=== PATIENT | male | born 1940 | race Caucasian/White ===

== ENCOUNTER 2016-11-22 08:10 | Inpatient (IN) | payer OTHER ==
[2016-11-01 11:24] VITALS: BMI 39.0
--- NOTE | 2016-11-01 12:04 | PAT Medication Instructions ---
Service Date November 01, 2016. Current Home Medication List Aspirin (Aspirin Ec), 81 MG PO QPM Atenolol (Tenormin), 100 MG PO QPM Cholecalciferol (Vitamin D3), 1 TAB PO QPM Ibuprofen Tab (Advil), 400 MG PO PRN Metformin Hcl (Glucophage), 500 MG PO BID Valsartan (Diovan), 320 MG PO QAM Medication Instructions For Your Scheduled Surgery - Check with surgeon for instructions: Ibuprofen Tab (Advil), 400 MG PO PRN - Hold the following medications 48 hours prior to surgery: Metformin Hcl (Glucophage), 500 MG PO BID - Hold the following medications the morning of surgery: Valsartan (Diovan), 320 MG PO QAM - Take the following medications as scheduled the night before surgery: Aspirin (Aspirin Ec), 81 MG PO QPM (okay to continue per surgeon) Atenolol (Tenormin), 100 MG PO QPM Cholecalciferol (Vitamin D3), 1 TAB PO QPM If you have any questions please call us at [phone] (Blanca Levi PA-C ) or [phone] or [phone]
[2016-11-01 13:22] LABS: BASO % 0.3 %; BASO ABS # 0.02 K/uL (0-0.2); COMPLETE YES; EOS % 1.7 %; HEMATOCRIT 41.1 % (42-52); IG% 0.3 %; LYMPH % 21.9 %; LYMPH ABS # 1.57 K/uL (1.2-3.4); MEAN CELL VOLUME 86.3 fL (80-100); MEAN CORPUSCULAR HEMOGLOBIN 29.2 pg (25-34); MEAN CORPUSCULAR HGB CONC 33.8 g/dl (32-36); MONO % 7.4 %; NEUT % 68.4 %; PLATELET COUNT 201 K/uL (130-400); RED BLOOD COUNT 4.76 M/uL (4.7-6.1); WHITE BLOOD COUNT 7.17 K/uL (4.8-10.8)
[2016-11-01 13:34] LABS: PARTIAL THROMBOPLASTIN RATIO 1.1; PROTHROMBIN TIME (PATIENT) 11.1 SECONDS (9.0-12.0)
[2016-11-01 14:06] LABS: ESTIMATED AVERAGE GLUCOSE 143 mg/dl; HA1C FLAG Normal (Normal)
[2016-11-01 14:37] LABS: BUN/CREATININE RATIO 17.8 (10-20); CALCIUM 8.8 mg/dl (8.5-10.1); CREATININE 1.2 mg/dl (0.60-1.40); POTASSIUM 4.2 mmol/L (3.5-5.1)
--- NOTE | 2016-11-01 16:32 | DIAGNOSTIC IMAGING REPORT ---
CHEST PREADMISSION(PA/LAT) CLINICAL HISTORY: PAT preoperative evaluation COMPARISON STUDY: No previous studies for comparison. FINDINGS: The bones soft tissues and hemidiaphragms are normal. The cardiomediastinal silhouette is normal. The lungs are clear. The pulmonary vasculature is normal. IMPRESSION: Negative chest. Electronically signed by: Bret Tidwell M.D. 11/01/2016 4:31 PM Dictated Date/Time: 11/01/2016 12:59 PM
--- NOTE | 2016-11-21 22:50 | HISTORY & PHYSICAL EXAMINATION ---
DATE OF ADMISSION: 11/22/2016 HISTORY OF PRESENT ILLNESS: The patient presents with severe endstage DJD. This is a 76-year-old white male, 5 feet 8 inches, 150 pounds with complaints of ongoing pain attributed to his left knee with severe end-stage tricompartmental degenerative joint disease with failure to respond to conservative management including physical therapy, anti-inflammatories, relative rest and activity modification who presents for a total knee arthroplasty. He has had previous physical therapy as well. ALLERGIES: None. FAMILY HISTORY: Otherwise unremarkable and noncontributory. SOCIAL HISTORY: The patient denies history of alcohol, smoking or recreational drug use. ALLERGIES: No known drug allergies are noted. PAST MEDICAL HISTORY: The patient does have a history of hypertension, hypercholesterolemia, chronic cough and diabetes. His past medical history is otherwise unremarkable. See history of present illness for pertinent positives. PHYSICAL EXAMINATION: GENERAL: This is a very pleasant male, alert and oriented x3. HEENT: Atraumatic, normocephalic and unremarkable. HEART: Regular rate, 68 beats per minute. LUNGS: Clear without rales, rhonchi or wheezes noted. ABDOMEN: Soft, nontender and nondistended. MUSCULOSKELETAL EXAMINATION: left Painful knee; with crepitation and varus alignment of the left knee. X-rays revealed evidence of medial joint line sclerosis, varus alignment, osteophytes, subchondral sclerosis and crepitation. The patient has failed attempts at conservative management including physical therapy, anti-inflammatories, relative rest, activity modification and presents for total knee arthroplasty. The patient's postoperative course will be controlled with pain management, DVT prophylaxis and antibiotics as necessary. CATHI
[2016-11-22] VITALS (8 sets, daily range): BP systolic 110–166; BP diastolic 59–98; PULSE 77–91; TEMP 36.5–36.9; O2SAT 93–97; BMI 39.0
[~2016-11-22] VITALS: Ht 172.7 cm; Wt 117.3 kg
[2016-11-22] MEDS: TRANEXAMIC ACID INJ 1,000 MG in SODIUM CHLORIDE 0.9% 100ML 100 ML IV SCH ×2 (06:30→09:42)
[~2016-11-22 08:10] MED LIST: ACETAMINOPHEN 500 MG TAB PO SCH; ASPI81TA28 PO; ATEN-175 PO; BUPIVACAINE 0.25% 30 ML VIAL ONE; BUPIVACAINE 0.5 % 5 MG/1 ML PF 10ML VIAL ONE; CEFAZOLIN 2000 MG/60 ML D5W 60 ML IV SCH; CHOL1000 PO; CeleBREX 200 MG CAP PO SCH; DEXAMETHASONE 4 MG TAB PO SCH; FAMOTIDINE 20 MG TAB PO SCH; GABAPENTIN 300 MG CAP PO SCH; GLC/500 PO; IBUP-103 PO; LACTATED RINGER'S 1000ML 1,000 ML IV SCH; LACTATED RINGER'S 1000ML 500 ML IV ONE; LACTATED RINGER'S 1000ML IV SCH; METOCLOPRAMIDE HCL 10 MG TAB PO SCH; ROPIVACAINE 5MG/ML 30 ML 150 MG, BUPIVACAINE/EPINEPHR 0.5% MPF 30 ML, KETOROLAC TROMETH... INFIL SCH; VALS320T PO
--- NOTE | 2016-11-22 08:21 | History & Physical Bridge Note ---
H&P Re-Evaluation Bridge Note: I have examined the patient, reviewed the History & Physical and in the interval since the performance of the History & Physical I have noted the following changes of clinical significance: No changes noted
[2016-11-22] MEDS ORDERED: FENTANYL CITRATE INJ 50 MCG/1 ML 2 ML VIAL ONE (08:56)
[2016-11-22] MEDS ORDERED: MIDAZOLAM HCL 1 MG/ML 2ML VIAL ONE (08:56)
[2016-11-22] MEDS ORDERED: PROPOFOL IV EMULSION 10 MG/ML 20 ML VIAL IV ONE (08:56)
[2016-11-22] MEDS ORDERED: ONDANSETRON INJ 2 MG/ML 2 ML VIAL ONE (08:56)
[2016-11-22] MEDS ORDERED: DEXAMETHASONE SOD INJ 4 MG/ML VIAL ONE (08:56)
[2016-11-22] MEDS ORDERED: LIDOCAINE HCL 2% 2 ML VIAL (20MG/ML) ONE (08:56)
[2016-11-22] MEDS ORDERED: GLYCOPYRROLATE INJ 0.2 MG/ML VIAL ONE (08:56)
[2016-11-22] MEDS ORDERED: ONDANSETRON INJ 2 MG/ML 2 ML VIAL IV PRN ×2 (09:00→12:00)
[2016-11-22] MEDS ORDERED: EpHEDrine SULFATE INJ 50 MG/ML AMP IV PRN (09:00)
[2016-11-22] MEDS ORDERED: ATROPINE SULFATE 0.1 MG/ML 5ML SYR IV PRN (09:00)
[2016-11-22] MEDS ORDERED: FENTANYL CITRATE INJ 50 MCG/1 ML 2 ML VIAL IV PRN (09:00)
[2016-11-22] MEDS ORDERED: ORTHO JOINT ANESTHETIC ONE (10:00)
[2016-11-22] MEDS ORDERED: POVIDONE-IODINE OP SOLN 30 ML BTL ONE (10:01)
[2016-11-22] MEDS ORDERED: BACITRACIN 50000 UNIT VIAL ONE (10:01)
--- NOTE | 2016-11-22 11:57 | [facility] Post Operative Brief Note ---
Immediate Operative Summary Operative Date Nov 22, 2016. Pre-Operative Diagnosis Left knee degenerative joint disease Post-Operative Diagnosis same Procedure(s) Performed Left total knee arthroplasty Surgeon Dr. Dueñas Capsule Machine Operator Surgeon(s) Jose De Jesus Mcgarry PA-C Estimated Blood Loss 5cc Findings severe djd lt knee Specimens a. left knee bone and tissue Complication(s) None Disposition Recovery Room / PACU
[2016-11-22] MEDS ORDERED: HYDROCODONE/ACETAMOPHEN 5/325MG TAB PO PRN (12:00)
[2016-11-22] MEDS ORDERED: DiphenhydrAMINE HCL 50 MG/ML VIAL IV PRN (12:00)
[2016-11-22] MEDS ORDERED: MAGNESIUM HYDROXIDE SUSP 30 ML UDC PO PRN (12:00)
[2016-11-22] MEDS ORDERED: METOCLOPRAMIDE HCL INJ 5 MG/ML 2 ML VIAL IV PRN (12:00)
[2016-11-22] MEDS ORDERED: BISACODYL 10 MG SUPP PR PRN (12:00)
[2016-11-22] MEDS ORDERED: OXYCODONE HCL IR 5 MG TAB (IMMEDIATE RELEASE) PO PRN (12:00)
[2016-11-22] MEDS ORDERED: ZOLPIDEM TARTRATE 5 MG TAB PO PRN (12:00)
[2016-11-22] MEDS ORDERED: SOD PHOSPHATE/SOD BIPHOSPHATE ENEMA 132 ML BTL PR PRN (12:00)
[2016-11-22] MEDS ORDERED: ALUMINUM/MAGNESIUM/SIMETH (MAALOX MAX) 30 ML UDC PO PRN (12:00)
[2016-11-22] MEDS ORDERED: METOPROLOL TARTRATE 1 MG/ML VIAL ONE (12:06)
--- NOTE | 2016-11-22 12:09 | OPERATIVE REPORT ---
DATE OF OPERATION: 11/22/2016 PREOPERATIVE DIAGNOSIS: Severe end-stage tricompartmental degenerative joint disease left knee. POSTOPERATIVE DIAGNOSIS: Severe end-stage tricompartmental degenerative joint disease with varus alignment, left knee. PROCEDURE: Left total knee arthroplasty utilizing [employer] Journey II patient matched total knee arthroplasty size 5 femur, 4 tibia, 10 poly, 35 oval patella. SURGEON: Dr. Dueñas. POWER TOOL REPAIRER: Jose De Jesus Person PA-C, who was necessary for prepping, draping, retraction, wound closure of deep fascia, subQ and skin and was necessary for the case. ESTIMATED BLOOD LOSS: 5 mL. TOURNIQUET TIME: 40 minutes. COMPLICATIONS: None. HISTORY OF PRESENT ILLNESS: The patient is a 76-year-old white male being seen and evaluated with complaints of ongoing severe end-stage tricompartmental degenerative joint disease of his left knee. He has been unresponsive to conservative therapy including anti-inflammatories, injections, relative rest, activity modification and presents for total knee arthroplasty. Risks, complications have been thoroughly discussed and the patient agrees to proceed forward with total knee arthroplasty. OPERATION AND FINDINGS: PROCEDURE: The patient was properly prepped and draped in supine position for total knee arthroplasty after identifying the appropriate surgical site. An anterior midline incision was made through the subcutaneous tissues down to the region of the extensor mechanism. A medial parapatellar incision was subsequently made. Meticulous hemostasis was obtained and performed at all times. The patella having been subluxed lateralward, medial and lateral meniscal remnants were excised. The patellar cut was then initially made and was sized to the appropriate size. After subluxing the tibia forward the appropriate meniscal fragments having been removed the distal femur was then cut first utilizing a [employer] block. The distal femoral cuts and chamfer cuts were all made under direct visualization and the proximal tibial osteotomy cut was also made utilizing [employer] blocks and checked with an extramedullary guide. The appropriate trial components on the femur and tibia were placed. Appropriate trial spacers were used to check flexion and extension gaps. With flexion and extension gaps being equal, the components were then subsequently after thorough irrigation and debridement lavage components were then subsequently cemented in the following order: femur, tibia and patella. Exparel was used for intraoperative anesthesia, the medial parapatellar incision was closed utilizing #1 Vicryl, subQ was closed with 2-0 Vicryl, skin was closed with skin clips. A sterile compression dressing was placed. The patient was taken to recovery room in stable condition. Due to the complex nature of the procedure, the entire surgery was performed with the operational assistance of Jose De Jesus Person PA-C. The rehab care assistant, under direct supervision, was involved in the actual performance of all aspects of the surgical procedure including hemostasis, tissue retraction and incision, instrument management, patient positioning, and wound closure. I attest to the content of the Intraoperative Record and any orders documented therein. Any exception s are noted below.
[2016-11-22] MEDS ORDERED: MoRPHine SULFATE 2 MG/ML CARP IV PRN ×2 (12:45→13:15)
--- NOTE | 2016-11-22 13:01 | Anesthesiology Progress Note ---
Anesthesia Post Op Note Date & Time Nov 22, 2016 at 13:01 Vital Signs Pain Intensity: 0 Vital Signs Past 12 Hours Date Time Temp Pulse Resp B/P (MAP) Pulse Ox O2 Delivery O2 Flow Rate FiO2 11/22/16 12:50 89 16 111/65 93 Nasal Cannula 2 11/22/16 12:40 84 16 156/72 100 Mask 10 11/22/16 12:35 37.1 89 16 84/43 98 Mask 10 11/22/16 08:48 36.7 77 18 166/98 96 Room Air Notes Mental Status: alert / awake / arousable, participated in evaluation Pt Amnestic to Procedure: Yes Nausea / Vomiting: adequately controlled Pain: adequately controlled Airway Patency, RR, SpO2: stable & adequate BP & HR: stable & adequate Hydration State: stable & adequate Neuraxial Anesthesia: was administered, sensory block is resolving Anesthetic Complications: no major complications apparent
--- NOTE | 2016-11-22 13:02 | DIAGNOSTIC IMAGING REPORT ---
LEFT KNEE 1 OR 2 VIEWS ROUTINE CLINICAL HISTORY: AP/LATERAL IN PACU LEFT KNEE COMPARISON: None. DISCUSSION: Evidence for a total left knee arthroplasty. Good contact between prosthetic and underlying bone. Surgical drains are in position. Expected soft tissue postoperative change. IMPRESSION: Anatomic alignment status post left knee arthroplasty. Electronically signed by: Bret Tidwell M.D. 11/22/2016 1:01 PM Dictated Date/Time: 11/22/2016 1:00 PM
[2016-11-22] MEDS ORDERED: MoRPHine SULFATE 10 MG/ML CARP/VIAL IV PRN (13:15)
[2016-11-22] MEDS ORDERED: MoRPHine SULFATE 4 MG/ML 1 ML CARP\\VIAL IV PRN (13:15)
[2016-11-22] MEDS: SODIUM CHLORIDE 0.9% 1000ML 1,000 ML IV SCH ×2 (13:31→22:17)
[2016-11-22] MEDS ORDERED: GLUCAGON FOR INJ 1 MG VIAL SQ PRN (13:45)
[2016-11-22] MEDS ORDERED: GLUCOSE 40% GEL 15 GM TUBE PO PRN (13:45)
[2016-11-22] MEDS ORDERED: DEXTROSE 50% 50 ML SYR IV PRN (13:45)
[2016-11-22] MEDS ORDERED: GLUCOSE 10 TABS/TUBE PO PRN (13:45)
--- NOTE | 2016-11-22 14:10 | Medical Consult ---
Consultation Date of Consultation: Nov 22, 2016. Attending Physician: Theo Dueñas D.O. Reason for Consultation: Post op med evaluation History of Present Illness 76 y/o M DJD, HTN, HPL, DM 2. Pt is S/P L TKA. Pt is recovering well in the post-op period. Pain is controlled. Denies CP, SOB, N/V, light head. Past Medical/Surgical History 1) HTN 2) HPL - untreated 3) DM 2 4) DJD Social History Smoking Status: Former Smoker Allergies Coded Allergies: No Known Allergies (Unverified , 11/22/16) Current Inpatient Medications Current Inpatient Medications Medications (Trade) Dose Ordered Sig/Christian Route Start Time Stop Time Status Last Admin Dose Admin Lactated Ringer's 1,000 ml @ 60 mls/hr [id number] IV 11/22/16 06:00 11/22/16 22:39 Acetaminophen (Tylenol Tab) 1,000 mg PREOP PO 11/22/16 06:00 11/22/16 18:00 11/22/16 09:29 1,000 MG Celecoxib (CeleBREX CAP) 200 mg PREOP PO 11/22/16 06:00 11/22/16 18:00 11/22/16 09:30 200 MG Dexamethasone (Decadron Tab) 8 mg PREOP PO 11/22/16 06:00 11/22/16 18:00 11/22/16 09:29 8 MG Famotidine (Pepcid Tab) 20 mg PREOP PO 11/22/16 06:00 11/22/16 18:00 11/22/16 09:29 20 MG Gabapentin (Neurontin Cap) 300 mg PREOP PO 11/22/16 06:00 11/22/16 18:00 11/22/16 09:29 300 MG Metoclopramide HCl (Reglan Tab) 10 mg PREOP PO 11/22/16 06:00 11/22/16 18:00 11/22/16 09:28 10 MG Tranexamic Acid 1000 mg/Sodium Chloride 110 ml @ 660 mls/hr TODAY@06,0630 IV 11/22/16 06:00 11/22/16 18:00 11/22/16 09:42 660 MLS/HR Cefazolin Sodium 60 ml @ 100 mls/hr PREOP IV 11/22/16 06:00 11/22/16 18:00 11/22/16 10:45 100 MLS/HR Ropivacaine 150 mg/Bupivacaine HCl/Epinephrine Bitart 30 ml/ Ketorolac Tromethamine 30 mg/Dexamethasone Sodium Phosphate 4 mg/Ketamine HCl 10 mg/Clonidine 100 mcg/Sodium Chloride 30 ml/ Empty Bag 93.2 ml @ 0 mls/hr TODAY@06 INFIL 11/22/16 06:00 11/22/16 16:00 11/22/16 11:21 93.2 MLS/HR Lactated Ringer's 1,000 ml @ 15 mls/hr Q24H IV 11/22/16 06:00 11/23/16 05:59 11/22/16 09:30 15 MLS/HR Sodium Chloride 1,000 ml @ 100 mls/hr Q10H IV 11/22/16 11:57 11/23/16 11:56 11/22/16 13:31 100 MLS/HR Cefazolin Sodium 2000 mg/Dextrose 60 ml @ 100 mls/hr Q8H IV 11/22/16 18:00 11/23/16 02:35 Oxycodone HCl (Roxicodone Immediate Rel Tab) 1 TABLET FOR PAIN RATING... Q4H PRN PO 11/22/16 12:00 12/06/16 11:59 Oxycodone HCl (Oxycontin Tab) 10 mg Q12 PO 11/22/16 21:00 12/06/16 20:59 Magnesium Hydroxide (Milk Of Magnesia Susp) 30 ml Q6H PRN PO 11/22/16 12:00 12/22/16 11:59 Bisacodyl (Dulcolax Supp) 10 mg DAILY PRN RI 11/22/16 12:00 12/22/16 11:59 Sodium Biphosphate/ Sodium Phosphate (Fleet Enema) 132 ml DAILY PRN RI 11/22/16 12:00 12/22/16 11:59 Senna (Senokot Tab) 17.2 mg HS PO 11/22/16 21:00 12/22/16 20:59 Docusate Sodium (coLACE CAP) 100 mg BID PO 11/22/16 21:00 12/22/16 20:59 Diphenhydramine HCl (Benadryl Cap) 25 mg Q8H PRN PO 11/22/16 12:00 12/22/16 11:59 Diphenhydramine HCl (Benadryl Inj) 25 mg Q8H PRN IV 11/22/16 12:00 12/22/16 11:59 Al Hydrox/Mg Hydrox/Simethicone (Maalox Max Susp) 15 ml Q4H PRN PO 11/22/16 12:00 12/22/16 11:59 Zolpidem Tartrate (Ambien Tab) 5 mg HSZ PRN PO 11/22/16 12:00 12/22/16 11:59 Multivitamins (Multivitamin Tab) 1 tab QAM PO 11/23/16 09:00 12/23/16 08:59 Ondansetron HCl (Zofran Inj) 4 mg Q6H PRN IV 11/22/16 12:00 12/22/16 11:59 Metoclopramide HCl (Reglan Inj) 10 mg Q6H PRN IV 11/22/16 12:00 12/22/16 11:59 Ferrous Gluconate (Ferrous Gluconate Tab) 324 mg TIDM PO 11/22/16 17:45 12/22/16 17:44 Pantoprazole Sodium (Protonix Tab) 40 mg QAM PO 11/23/16 09:00 12/23/16 08:59 Tranexamic Acid 1000 mg/Sodium Chloride 110 ml @ 660 mls/hr Q6H IV 11/22/16 18:30 11/22/16 18:39 Aspirin (Ecotrin Tab) 81 mg BID PO 11/22/16 21:00 12/22/16 20:59 Atenolol (Tenormin Tab) 100 mg QPM PO 11/23/16 21:00 12/23/16 20:59 Cholecalciferol (Vitamin D Tab) 1,000 inter.unit QPM PO 11/22/16 21:00 12/22/16 20:59 Valsartan (Diovan Tab) 320 mg QAM PO 11/23/16 09:00 12/23/16 08:59 Insulin Aspart (novoLOG ASPART) SLIDING SCALE G... ACHS SC 11/22/16 16:00 12/22/16 15:59 Morphine Sulfate (MoRPHine SULFATE INJ) 2 mg Q4HWA PRN IV 11/22/16 13:15 12/06/16 13:14 Morphine Sulfate (MoRPHine SULFATE INJ) 4 mg Q4HWA PRN IV 11/22/16 13:15 12/06/16 13:14 Morphine Sulfate (MoRPHine SULFATE INJ) 6 mg Q4HWA PRN IV 11/22/16 13:15 12/06/16 13:14 Glucose (Glucose 40% Gel) 15-30 GRAMS 15 GRAMS... UD PRN PO 11/22/16 13:45 12/22/16 13:44 Glucose (Glucose Chew Tab) 4-8 Tablets 4 Tabl... UD PRN PO 11/22/16 13:45 12/22/16 13:44 Dextrose (Dextrose 50% 50ML Syringe) 25-50ML OF 50% DW IV FOR... UD PRN IV 11/22/16 13:45 12/22/16 13:44 Glucagon (Glucagon Inj) 1 mg UD PRN SQ 11/22/16 13:45 12/22/16 13:44 Review of Systems Constitutional: No fever, No chills, No sweats Eyes: No worsening of vision, No eye pain ENT: No hearing loss, No unusual epistaxis, No nasal symptoms Respiratory: No cough, No sputum, No wheezing Cardiovascular: No chest pain, No orthopnea, No PND Abdomen: No pain, No nausea, No vomiting Musculoskeletal: + joint pain (pain at surgical site), + muscle pain Genitourinary - Male: No hematuria, No dysuria, No urinary frequency, No urinary urgency Neurologic: No memory loss, No paralysis, No weakness Psychiatric: No depression symptoms, No anhedonism Endocrine: No fatigue, No excessive thirst Hematologic / Lymphatic: No abnormal bleeding/bruising Integumentary: No rash Allergic / Immunologic: No environmental allergies Physical Exam Date Time Temp Pulse Resp B/P (MAP) Pulse Ox O2 Delivery O2 Flow Rate FiO2 11/22/16 13:40 36.9 88 19 121/69 (86) 96 Nasal Cannula 2.0 11/22/16 13:15 36.6 86 18 110/87 (95) 94 Nasal Cannula 2.0 11/22/16 13:00 36.6 88 16 103/61 93 Nasal Cannula 2 11/22/16 12:50 89 16 111/65 93 Nasal Cannula 2 11/22/16 12:40 84 16 156/72 100 Mask 10 11/22/16 12:35 37.1 89 16 84/43 98 Mask 10 11/22/16 08:48 36.7 77 18 166/98 96 Room Air General Appearance: WD/WN, no apparent distress Head: normocephalic, atraumatic Eyes: normal inspection, PERRL, EOMI ENT: normal ENT inspection, hearing grossly normal, pharynx normal Neck: supple, no JVD Respiratory/Chest: chest non-tender, lungs clear, normal breath sounds Cardiovascular: regular rate, rhythm, no gallop, no JVD, no murmur, normal peripheral pulses Abdomen/GI: normal bowel sounds, non tender, soft Back: normal inspection, no CVA tenderness, no muscle spasm, normal range of motion Extremities/Musculoskelatal: + pertinent finding (A drain is placed in the L knee - there is B/L edema L > R) Neurologic/Psych: chaplain II-XII nml as tested, no motor/sensory deficits, alert, normal mood/affect, normal reflexes, oriented x 3 Skin: normal color, warm/dry, no rash Laboratory Results Last 24 Hours Test 11/22/16 08:34 11/22/16 12:51 Bedside Glucose 193 mg/dl 205 mg/dl Assessment & Plan 76 y/o M DJD, HTN, HPL, DM 2. Pt is S/P L TKA. Pt is recovering well in the post-op period. Pain is controlled. Denies CP, SOB, N/V, light head. 1) Post - op - no noted complications - pain controlled - tolerating PO - to start PT - DVT prophylaxis at earliest allowable time 2) DM - agree with napoleon-op sliding scale 3) HTN - VB elder today if BP tolerated - reintroduce Valsartan AM with parameters and after BMP reviewed Total time for this consult including review of labs, meds, EKG, ortho records - 30 min
[2016-11-22] MEDS: INSULIN ASPART 100 UNITS/ML 3 ML PEN SC SCH ×3 (14:59→22:14)
[2016-11-22] MEDS ORDERED: LANTUS PER UNIT CHARGE SC SCH (18:15)
[2016-11-22] MEDS ORDERED: TRANEXAMIC ACID INJ 1,000 MG in SODIUM CHLORIDE 0.9% 100ML 100 ML IV SCH (18:30)
[2016-11-22] MEDS: CEFAZOLIN IV 2,000 MG in DEXTROSE 5% 50ML 50 ML IV SCH (18:33)
[2016-11-22] MEDS: FERROUS GLUCONATE 324 MG TAB PO SCH (18:34)
[2016-11-22] MEDS: SENNA 8.6 MG TAB PO SCH (21:00)
[2016-11-22] MEDS: DOCUSATE SODIUM 100 MG CAP PO SCH (21:00)
[2016-11-22] MEDS: OXYCODONE HCL 10 MG TABCR (OXYCONTIN) PO SCH ×2 (21:00→22:21)
[2016-11-22] MEDS: ASPIRIN 81 MG ECTAB PO SCH (22:07)
[2016-11-22] MEDS: CHOLECALCIFEROL 1000 INTER.UNIT TAB PO SCH (22:08)
[2016-11-23] VITALS (8 sets, daily range): BP systolic 110–173; BP diastolic 62–90; PULSE 75–80; TEMP 36.4–36.8; O2SAT 95–98; Ht 172.7 cm; Wt 117.3 kg
[2016-11-23] MEDS: CEFAZOLIN IV 2,000 MG in DEXTROSE 5% 50ML 50 ML IV SCH (02:18)
[2016-11-23 05:48] LABS: HEMATOCRIT 35.8 % (42-52); MEAN CORPUSCULAR HEMOGLOBIN 27.9 pg (25-34); MEAN CORPUSCULAR HGB CONC 33.2 g/dl (32-36); MEAN PLATELET VOLUME 9.8 fL (7.4-10.4); PLATELET COUNT 170 K/uL (130-400); RED BLOOD COUNT 4.26 M/uL (4.7-6.1); WHITE BLOOD COUNT 10.62 K/uL (4.8-10.8)
[2016-11-23 06:20] LABS: BUN/CREATININE RATIO 21.1 (10-20); CALCIUM 8.1 mg/dl (8.5-10.1); CREATININE 1.3 mg/dl (0.60-1.40); POTASSIUM 4.4 mmol/L (3.5-5.1)
--- NOTE | 2016-11-23 07:53 | Hospitalist Progress Note ---
Hospitalist Progress Note Date of Service Nov 23, 2016. Subjective Pt evaluation today including: conversation w/ patient, conversation w/ family , physical exam, chart review, lab review Pain: None PO Intake: Good Voiding: no voiding problems The patient was seen and examined this morning. Pt reports doing well. He just worked with PT/OT and did a long lap around the [place]. His pain actually improved as he was walking, and reports his knee isn't as stiff now. He is eating without difficulty, and reports passing gas although hasn't had a BM yet. His glucose has been slightly elevated here, in the high 200s and low 300s , pt reports it's normally around 150 at home. Constitutional: No fever, No chills, No sweats, No fatigue Eyes: No redness, No diplopia ENT: No sore throat, No trouble swallowing Respiratory: No cough, No shortness of breath Cardiovascular: No chest pain, No palpitations Abdomen: No pain, No nausea, No vomiting, No diarrhea, No constipation Musculoskeletal: + swelling (bilateral lower extremities), No joint pain, No muscle pain Neurologic: No weakness, No numbness/tingling Endo: No fatigue Skin: No rash, No itch Objective Vital Signs Date Time Temp Pulse Resp B/P (MAP) Pulse Ox O2 Delivery O2 Flow Rate FiO2 11/23/16 03:13 78 136/78 (97) 11/23/16 02:55 36.4 78 18 162/76 (104) 95 Room Air 11/23/16 00:24 Room Air 11/22/16 23:00 36.5 86 18 140/93 (109) 93 Room Air 11/22/16 20:30 36.8 80 20 130/78 (95) 96 Room Air 11/22/16 16:27 36.9 85 20 131/72 (91) 96 Nasal Cannula 2.0 11/22/16 16:00 Nasal Cannula 2.0 11/22/16 15:22 36.9 79 18 122/68 (86) 94 Nasal Cannula 2.0 11/22/16 14:15 91 113/59 (77) 97 Nasal Cannula 2.0 11/22/16 13:40 36.9 88 19 121/69 (86) 96 Nasal Cannula 2.0 11/22/16 13:30 Nasal Cannula 2.0 11/22/16 13:30 Nasal Cannula 2.0 11/22/16 13:15 36.6 86 18 110/87 (95) 94 Nasal Cannula 2.0 11/22/16 13:00 36.6 88 16 103/61 93 Nasal Cannula 2 11/22/16 12:50 89 16 111/65 93 Nasal Cannula 2 11/22/16 12:40 84 16 156/72 100 Mask 10 11/22/16 12:35 37.1 89 16 84/43 98 Mask 10 11/22/16 08:48 36.7 77 18 166/98 96 Room Air Physical Exam General Appearance: WD/WN, no apparent distress, + obese Eyes: PERRL, EOMI ENT: hearing grossly normal, pharynx normal Neck: supple, no JVD Respiratory/Chest: lungs clear, no respiratory distress, no accessory muscle use Cardiovascular: regular rate, rhythm, no JVD, no murmur Abdomen: normal bowel sounds, non tender, soft Extremities: non-tender, no calf tenderness, + pedal edema (1+ pitting ), + pertinent finding (L knee with SUSAN wrap, ice pack in place, hemovac draining) Neurologic/Psychiatric: alert, normal mood/affect, oriented x 3 Laboratory Results Last 24 Hours Test 11/22/16 08:34 11/22/16 12:51 11/22/16 17:10 11/22/16 21:37 Bedside Glucose 193 mg/dl 205 mg/dl 332 mg/dl 260 mg/dl Test 11/23/16 05:33 White Blood Count 10.62 K/uL Red Blood Count 4.26 M/uL Hemoglobin 11.9 g/dL Hematocrit 35.8 % Mean Corpuscular Volume 84.0 fL Mean Corpuscular Hemoglobin 27.9 pg Mean Corpuscular Hemoglobin Concent 33.2 g/dl RDW Standard Deviation 42.7 fL RDW Coefficient of Variation 14.0 % Platelet Count 170 K/uL Mean Platelet Volume 9.8 fL Sodium Level 137 mmol/L Potassium Level 4.4 mmol/L Chloride Level 102 mmol/L Carbon Dioxide Level 26 mmol/L Anion Gap 9.0 mmol/L Blood Urea Nitrogen 27 mg/dl Creatinine 1.30 mg/dl Est Creatinine Clear Calc Drug Dose 59.2 ml/min Estimated GFR () 61.0 Estimated GFR (Non- 52.6 BUN/Creatinine Ratio 21.1 Random Glucose 188 mg/dl Calcium Level 8.1 mg/dl Assessment and Plan 76 y/o M with Degenerative joint disease, HTN, HPL, DM 2 who is now S/P Left TKA by Dr. Dueñas. S/p L TKA - Analgesia with oxycodone 5-10 mg, morphine IV, will continue bowel regimen. - DVT ppx with ASA 81 mg BID - PT/OT per primary team, plans for home health rehab after d/c DM - ISS with accuchecks - Restart metformin 500 mg BID with increased glucose HTN - - Restarted atenolol 100 mg QPM last evening, Valsartan 320 mg Qam scheduled today DVT ppx: ASA 81 mg BID, teds, scd on unaffected leg CODE STATUS: FULL CODE Disposition: From home, likely discharge tomorrow, home health pt/ot
--- NOTE | 2016-11-23 08:12 | Anesthesiology Progress Note ---
Anesthesia Post Op Note Date & Time Nov 23, 2016 at 08:12 Vital Signs Pain Intensity: 8.0 Vital Signs Past 12 Hours Date Time Temp Pulse Resp B/P (MAP) Pulse Ox O2 Delivery O2 Flow Rate FiO2 11/23/16 07:53 36.5 80 18 128/90 (103) 98 Room Air 11/23/16 03:13 78 136/78 (97) 11/23/16 02:55 36.4 78 18 162/76 (104) 95 Room Air 11/23/16 00:24 Room Air 11/22/16 23:00 36.5 86 18 140/93 (109) 93 Room Air 11/22/16 20:30 36.8 80 20 130/78 (95) 96 Room Air Notes Mental Status: alert / awake / arousable, participated in evaluation Pt Amnestic to Procedure: Yes Nausea / Vomiting: adequately controlled Pain: adequately controlled Airway Patency, RR, SpO2: stable & adequate BP & HR: stable & adequate Hydration State: stable & adequate Neuraxial Anesthesia: was administered, sensory block resolved Anesthetic Complications: no major complications apparent
[2016-11-23] MEDS: SODIUM CHLORIDE 0.9% 1000ML 1,000 ML IV SCH (08:26)
[2016-11-23] MEDS: DOCUSATE SODIUM 100 MG CAP PO SCH ×2 (08:30→21:00)
[2016-11-23] MEDS: FERROUS GLUCONATE 324 MG TAB PO SCH ×3 (08:30→17:53)
[2016-11-23] MEDS: ASPIRIN 81 MG ECTAB PO SCH ×2 (08:31→21:14)
[2016-11-23] MEDS: PANTOprazole SOD 40 MG TAB PO SCH (08:31)
[2016-11-23] MEDS: MULTIVITAMIN TAB PO SCH (08:31)
[2016-11-23] MEDS: VALSARTAN 80 MG TAB PO SCH (08:31)
[2016-11-23] MEDS: INSULIN ASPART 100 UNITS/ML 3 ML PEN SC SCH ×4 (08:38→21:22)
--- NOTE | 2016-11-23 08:50 | Orthopedic Progress Note ---
Orthopedic Progress Note Date of Service Nov 23, 2016. Subjective Post OP Day: 1 Reports: feeling well, Denies: complaints, chest pain, SOB, nausea / vomiting, light headedness, calf pain Additional Notes: Pt sitting up in chair eating breakfast. No complaints this AM. Pain controlled currently. Objective calves soft nontender, N/V intact, dressing C/D/I, A&O x3, toes mobile, hemovac drainage (75ml latest shift) Date Time Temp Pulse Resp B/P (MAP) Pulse Ox O2 Delivery O2 Flow Rate FiO2 11/23/16 08:23 98 Room Air 11/23/16 07:53 36.5 80 18 128/90 (103) 98 Room Air 11/23/16 03:13 78 136/78 (97) 11/23/16 02:55 36.4 78 18 162/76 (104) 95 Room Air 11/23/16 00:24 Room Air 11/22/16 23:00 36.5 86 18 140/93 (109) 93 Room Air 11/22/16 20:30 36.8 80 20 130/78 (95) 96 Room Air 11/22/16 16:27 36.9 85 20 131/72 (91) 96 Nasal Cannula 2.0 11/22/16 16:00 Nasal Cannula 2.0 11/22/16 15:22 36.9 79 18 122/68 (86) 94 Nasal Cannula 2.0 11/22/16 14:15 91 113/59 (77) 97 Nasal Cannula 2.0 11/22/16 13:40 36.9 88 19 121/69 (86) 96 Nasal Cannula 2.0 11/22/16 13:30 Nasal Cannula 2.0 11/22/16 13:30 Nasal Cannula 2.0 11/22/16 13:15 36.6 86 18 110/87 (95) 94 Nasal Cannula 2.0 11/22/16 13:00 36.6 88 16 103/61 93 Nasal Cannula 2 11/22/16 12:50 89 16 111/65 93 Nasal Cannula 2 11/22/16 12:40 84 16 156/72 100 Mask 10 11/22/16 12:35 37.1 89 16 84/43 98 Mask 10 11/22/16 08:48 36.7 77 18 166/98 96 Room Air Laboratory Results 24 Hours: Test 11/23/16 05:33 Hematocrit 35.8 % Hemoglobin 11.9 g/dL Assessment & Plan Assessment: POD 1 s/p Left TKA HTN DM 2 Hypercholesterolemia Plan: PT/OT Planning for HH services upon DC Medical Management per [facility] Hospitalist Service Inhouse Planning Pain Management: Oxycontin, Morphine, Oxy IR DVT Prophylaxis: TEDs, SCDs, ASA Discharge Planning Discharge Planning: home with home health Pain Management: Oxycontin, PO Tylenol, Oxy IR DVT Prophylaxis: TEDs, ASA Therapy: Physical Therapy
[2016-11-23] MEDS: OXYCODONE HCL 10 MG TABCR (OXYCONTIN) PO SCH ×2 (08:51→21:15)
--- NOTE | 2016-11-23 08:54 | Discharge Instructions ---
Discharge Instructions Date of Service Nov 23, 2016. Admission Reason for Admission: Left Knee Degenerative Joint Disease Discharge Discharge Diagnosis / Problem: Djd Left Knee Discharge Goals Goal(s): Decrease discomfort, Improve function Activity Recommendations Activity Limitations: per Instructions/Follow-up section Weightbearing Status: Left weightbearing (as tolerated) . Instructions / Follow-Up Instructions / Follow-Up ACTIVITY RECOMMENDATIONS: SELF CARE INSTRUCTIONS AFTER TOTAL KNEE REPLACEMENT A. You may need to continue a physical therapy program after discharge from the hospital. There are several options available to you. Your doctor will assist you in selecting the best one for you. 1. An out-patient facility 2 to 3 times a week for therapy or home therapy. 2. Continue working on all exercises taught to you in the hospital. Your goals should be to increase bending of your knee to 90 degrees and beyond and to fully straighten your knee. B. You may progress at your own pace from walking with a walker or crutches to a cane; then to no assistive devices. C. Make walking a part of your daily routine. Be up as much as comfortable with rest periods throughout the day. Rest with leg elevation is very important. Use the ice wrap frequently for the first 3-4 weeks. D. There are no restrictions on activities. You may ride in a car, shop, participate in hotel services supervisor and all social activities. E. Wear the long elastic stockings (SHANTEL hose) 20 hours a day for 2 weeks after surgery. They can be removed several times a day for laundering and for a bath. F. You may shower, no tub baths until cleared by your doctor. SPECIAL CARE INSTRUCTIONS: VERY IMPORTANT TO READ AND REVIEW A. There are a few signs you need to watch for after you are home. Call [facility] if you notice any of the followin. Increased severe knee pain. Some pain is expected especially when you exercise. 2. Increased swelling in your leg or knee; pain or swelling of the calf muscle in either lower leg. 3. Any fluid drainage from the incision. 4. Shortness of breath or chest pain. B. Please call [facility] at if you have any concerns or questions about your operation or recovery. The doctor or his nurse will return your call promptly. C. You must take antibiotics before dental work, bladder, bowel or other surgery. Your doctor will provide you with a permanent care to carry describing this precaution. IMPORTANT: * REMEMBER TO TAKE ASPIRIN, 81 MG, TWICE DAILY FOR 4 WEEKS UNLESS OTHERWISE DIRECTED. THIS IS YOUR BLOOD THINNER. * HIGH RISK PATIENTS MAY BE PRESCRIBED A STRONGER BLOOD THINNER. THIS WILL BE PROVIDED AT DISCHARGE. * CALL IF INCREASED PAIN, REDNESS, DRAINAGE OR FEVER GREATER THAT 101. * WEAR SHANTEL HOSE 20 HOURS PER DAY FOR 2 WEEKS. * Silverlon- This is a large adhesive bandage that contains silver ions. This helps your incision heal by fighting off bacteria and protecting it from the outside environment. You are permitted to shower with this dressing. This will remain on your incision for 7 days and then should be removed. Some visible blood or drainage through the dressing window is normal. If there is significant drainage or leaking noted before the 7 days notify your doctor's office immediately. Once removed, keep incision clean and dry. If there is any drainage or redness noted, please call your surgeon. . FOLLOW UP VISIT: If appointment is not already scheduled: Please call [facility] to make a follow-up appointment for 2 weeks after your surgery at . Current Hospital Diet Patient's current hospital diet: Diabetes Type 2 Diet Discharge Diet Recommended Diet: Diabetes Type 2 Diet Procedures Procedures Performed: Left total knee arthroplasty Pending Studies Studies pending at discharge: no Laboratory Results Hemoglobin A1c Test 11/01/16 12:25 Range/Units Estimated Average Glucose 143 mg/dl Hemoglobin A1c 6.6 H 4.5-5.6 % Medical Emergencies . Who to Call and When: Medical Emergencies: If at any time you feel your situation is an emergency, please call 911 immediately. . Non-Emergent Contact Non-Emergency issues call your: Surgeon Call Non-Emergent contact if: temperature is above 101.5, your pain is not controlled, your pain is worsening, wound has increased drainage, wound has increased redness . "Provider Documentation" section prepared by Jose De Jesus Person. . VTE Core Measure Inpt VTE Proph given/why not?: Other Anticoagulation, T.E.D. Stockings, SCD's [place] Drug Monitoring Program Search Results: patient reviewed within database, no issues identified
[2016-11-23] MEDS: METFORMIN HCL 500 MG TAB PO SCH ×2 (12:49→21:15)
[2016-11-23] MEDS: ACETAMINOPHEN 500 MG TAB PO SCH ×2 (13:49→21:19)
[2016-11-23] MEDS: SENNA 8.6 MG TAB PO SCH (21:00)
[2016-11-23] MEDS: CHOLECALCIFEROL 1000 INTER.UNIT TAB PO SCH (21:17)
[2016-11-24] MEDS: ACETAMINOPHEN 500 MG TAB PO SCH (05:34)
--- NOTE | 2016-11-24 07:24 | Orthopedic Progress Note ---
Orthopedic Progress Note Date of Service Nov 24, 2016. Subjective Post OP Day: 2 Reports: feeling well Objective calves soft nontender, N/V intact, dressing C/D/I, toes mobile Date Time Temp Pulse Resp B/P (MAP) Pulse Ox O2 Delivery O2 Flow Rate FiO2 11/24/16 00:10 Room Air 11/23/16 22:45 36.6 78 16 166/62 (96) 96 Room Air 11/23/16 16:19 36.8 75 17 147/66 (93) 95 Room Air 11/23/16 15:45 Room Air 11/23/16 12:13 36.6 77 16 110/68 (82) 96 Room Air 11/23/16 10:11 80 97 11/23/16 08:25 Room Air 11/23/16 08:23 98 Room Air 11/23/16 07:53 36.5 80 18 128/90 (103) 98 Room Air Assessment & Plan Assessment: POD 2 s/p Left TKA HTN DM 2 Hypercholesterolemia Plan: PT/OT Planning for HH services upon DC Medical Management per [facility] Hospitalist Service Inhouse Planning Pain Management: Oxycontin, Morphine, Oxy IR DVT Prophylaxis: TEDs, SCDs, ASA Discharge Planning Discharge Planning: home with home health Pain Management: Oxycontin, PO Tylenol, Oxy IR DVT Prophylaxis: TEDs, ASA Therapy: Physical Therapy
[2016-11-24] MEDS ORDERED: OXYSR10 PO (07:27)
[2016-11-24] MEDS ORDERED: RXC5 PO (07:27)
[2016-11-24] MEDS ORDERED: ASPEC81 PO (07:27)
[2016-11-24] MEDS ORDERED: ACET-24 PO (07:27)
[2016-11-24 07:28] VITALS: BP 149/69; PULSE 73; TEMP 36.5; O2SAT 95
[2016-11-24] MEDS: FERROUS GLUCONATE 324 MG TAB PO SCH (08:15)
[2016-11-24] MEDS: INSULIN ASPART 100 UNITS/ML 3 ML PEN SC SCH (08:28)
[2016-11-24] MEDS: DOCUSATE SODIUM 100 MG CAP PO SCH (08:30)
[2016-11-24] MEDS ORDERED: METFORMIN HCL 500 MG TAB PO SCH (08:30)
[2016-11-24] MEDS: VALSARTAN 80 MG TAB PO SCH (08:30)
[2016-11-24] MEDS: PANTOprazole SOD 40 MG TAB PO SCH (08:31)
[2016-11-24] MEDS: ASPIRIN 81 MG ECTAB PO SCH (08:31)
[2016-11-24] MEDS: MULTIVITAMIN TAB PO SCH (08:31)
[2016-11-24] MEDS: OXYCODONE HCL 10 MG TABCR (OXYCONTIN) PO SCH (08:56)
[2016-11-24 10:55] VITALS: BP 149/69; PULSE 73; TEMP 36.5; O2SAT 95
--- NOTE | 2016-11-24 12:37 | Hospitalist Progress Note ---
Hospitalist Progress Note Date of Service Nov 24, 2016. Subjective Pt evaluation today including: chart review Objective Vital Signs Date Time Temp Pulse Resp B/P (MAP) Pulse Ox O2 Delivery O2 Flow Rate FiO2 11/24/16 10:55 36.5 73 18 95 Room Air 11/24/16 08:23 Room Air 11/24/16 07:28 36.5 73 18 149/69 (95) 95 Room Air 11/24/16 00:10 Room Air 11/23/16 22:45 36.6 78 16 166/62 (96) 96 Room Air 11/23/16 16:19 36.8 75 17 147/66 (93) 95 Room Air 11/23/16 15:45 Room Air Laboratory Results Last 24 Hours Test 11/23/16 17:00 11/23/16 21:04 11/24/16 08:05 Bedside Glucose 130 mg/dl 166 mg/dl 167 mg/dl Assessment and Plan 76 y/o M with Degenerative joint disease, HTN, HPL, DM 2 who is now S/P Left TKA by Dr. Dueñas. S/p L TKA - POD #1 - Analgesia with oxycodone 5-10 mg, morphine IV, will continue bowel regimen. - DVT ppx with ASA 81 mg BID - PT/OT per primary team, plans for home health rehab after d/c DM - ISS with accuchecks - Restart metformin 500 mg BID with increased glucose -improved today compared to yesterday with glucose under 150-190s. HTN - - Restarted atenolol 100 mg QPM last evening, Valsartan 320 mg Qam scheduled today DVT ppx: ASA 81 mg BID, teds, scd on unaffected leg CODE STATUS: FULL CODE Disposition: From home, discharge home today.
--- NOTE | 2016-11-28 22:58 | DISCHARGE SUMMARY ---
DISCHARGE DIAGNOSIS: Degenerative joint disease left knee. SECONDARY DIAGNOSES: Hypertension, hypercholesterolemia, chronic cough, diabetes mellitus. CONSULTS: Dr. Jaret Andersen. COMPLICATIONS: None. PROCEDURES: Left total knee arthroplasty performed by Dr. Dueñas on 11/22/2016. BRIEF HISTORY: As dictated in the history and physical. HOSPITAL SUMMARY: The patient was admitted on the above-noted date and had the above-noted surgery performed which he tolerated well. On the first postoperative day, he was feeling well and had no complaints. He was sitting up and eating his breakfast in a chair. Pain was controlled. Calves were soft and nontender, neurovascularly intact. Dressings clean, dry and intact. Toes were mobile. Vital signs were stable and he was afebrile. Hemoglobin was 11.9. He was started on physical therapy protocol and continued on DVT prophylaxis and pain management and continued on medical management per [facility] hospitalist service. By his second postoperative day, he was feeling well. Calves were soft and nontender, neurovascularly intact. Dressings clean, dry and intact. Toes were mobile. Vital signs showed systolic BPs fluctuating up to 166 and he was continued on his protocol and remained stable. He was seen by the medical team and was noted to have restarted his atenolol the previous evening and valsartan was scheduled that morning. It was felt that he was medically stable for discharge and he was discharged to home on 11/24/2016. For further review, please see chart. LABORATORY AND X-RAY DATA: As per chart. DISCHARGE INSTRUCTIONS: The patient was discharged to home in satisfactory condition on 11/24/2016. DIET: Diabetic. ACTIVITY: Weightbearing as tolerated in the left lower extremity. Follow TK instruction sheets and special care instructions as noted. Follow up with Dr. Dueñas in 2 weeks. The patient to call for appointment if one has not been made for you. DISCHARGE MEDICATIONS: Acetaminophen 1000 mg p.o. q. 8 hours for 28 days. Aspirin 81 mg p.o. b.i.d. for 28 days, and after 28 days, stop taking aspirin twice daily and resume at once daily dosing. OxyContin 10 mg p.o. q. 12 hours, oxycodone 5-10 mg p.o. q. 4-6 hours p.r.n., Resume taking atenolol 100 mg p.o. q.p.m., vitamin D3 one tab p.o. q.p.m., metformin 500 mg p.o. b.i.d., and valsartan 320 mg p.o. q.a.m. Stop taking ibuprofen.
== END 2016-11-24 11:55 | disposition home health service (06) | DRG 470 ==
LOC: C.ACU 08:10 → C.3E 10:00 → ENRESERV 12:44
PROVIDERS: ADMIT Orthopaedic Surgery; ATTEND Orthopaedic Surgery
PROC: 0SRD0J9 Replacement of Left Knee Joint with Synthetic Substitute, Cemented, Open Approach (ICD-10-PCS; principal; 2016-11-22 10:15)
DX: M17.12 Unilateral primary osteoarthritis, left knee (principal); I10 Essential (primary) hypertension; E78.00 Pure hypercholesterolemia, unspecified; R05 Cough; E11.9 Type 2 diabetes mellitus without complications; E66.9 Obesity, unspecified; Z87.891 Personal history of nicotine dependence; Z68.39 Body mass index [BMI] 39.0-39.9, adult; Z79.82 Long term (current) use of aspirin; Z79.84 Long term (current) use of oral hypoglycemic drugs; Z79.1 Long term (current) use of non-steroidal anti-inflammatories (NSAID); Z79.899 Other long term (current) drug therapy